=== PATIENT | male | born 1980 | race Caucasian/White ===

== ENCOUNTER 2019-02-13 14:01 | Emergency (ER) | payer SELFPAY ==
[2019-02-13] MEDS ORDERED: Fluorescein Opthalmic Strip ONE (14:06)
== END 2019-02-13 14:34 | disposition home or self-care (01) ==
LOC: BURERS 14:01
DX: T15.01XA Foreign body in cornea, right eye, initial encounter (principal); E78.2 Mixed hyperlipidemia; F17.210 Nicotine dependence, cigarettes, uncomplicated; X04.XXXA Exposure to ignition of highly flammable material, initial encounter
CPT/HCPCS: 99283